=== PATIENT | male | born 1995 | race Caucasian/White ===

== ENCOUNTER 2018-11-23 19:30 | Emergency (ER) | payer BC ==
[2018-11-23] MEDS ORDERED: Acetaminophen 500 MG TAB ONE (20:33)
[2018-11-23] MEDS ORDERED: Ondansetron ODT 4 MG TAB ONE (20:33)
== END 2018-11-23 21:21 | disposition home or self-care (01) ==
LOC: ERS 19:30
DX: J20.9 Acute bronchitis, unspecified (principal)
CPT/HCPCS: 87804; 99283; Q0162